=== PATIENT | male | born 1970 | race Caucasian/White ===

== ENCOUNTER 2022-01-22 23:59 | Inpatient (IN) | payer OTHER, BC ==
[2022-01-23] MEDS ORDERED: Fentanyl 100 MCG/2 ML VIAL ONE (00:03)
[2022-01-23] MEDS ORDERED: Boostrix 0.5 ML (Tdap) VIAL ONE (00:07)
[2022-01-23] MEDS ORDERED: ceFAZolin (BATCH) 2 GM/100 ML BAG ONE ×2 (00:07→00:08)
[2022-01-23] MEDS ORDERED: Vecuronium 10 MG VIAL ONE (00:10)
[2022-01-23] MEDS ORDERED: Water For Inject, Bacteriostat 30 ML ONE (00:12)
[2022-01-23 00:24] LABS: #Eosinphils 0.1 thou/uL (0.0-0.7); #Lymphocytes 2.8 thou/uL (1.20-3.40); #Monocytes 1.4 thou/uL (0.11-0.59); #Neutrophils 15.5 thou/uL (1.40-6.50); %Basophils 0.2 % (0.0-1.0); %Eosinophils 0.4 % (0.0-10.0); %Neutrophils 78.3 % (42.0-75.0); Hemoglobin 16.2 g/dL (14.0-18.0); Mean Corpuscular Hemoglobin 30.2 pg (27.0-31.0); Mean Corpuscular Volume 94.4 fL (78.0-98.0); Mean Platelet Volume 7.7 fL (7.4-10.4); Platelet Count 164 thou/uL (130-400); RBC Distribution Width 13.8 % (11.5-14.5); Red Blood Cell (RBC) Count 5.38 mill/uL (4.70-6.10); White Blood Cell (WBC) Count 19.8 thou/uL (4.8-10.8)
[2022-01-23 00:42] LABS: ALT (SGPT) 439 U/L (8-55); AST (SGOT) 488 U/L (5-34); Albumin 3.9 g/dL (3.5-5.0); Alkaline Phosphatase 82 U/L (40-110); Anion Gap 20 mmol/L (10-20); BUN (Urea Nitrogen) 15 mg/dL (8.9-20.6); Bilirubin, Total 1.4 mg/dL (0.2-1.2); Calc. Creatinine Clearance 0 mL/min (70-130); Calcium 8.1 mg/dL (7.8-10.44); Carbon Dioxide 20 mmol/L (22-29); Chloride 105 mmol/L (98-107); Globulin 2.5 g/dL (2.4-3.5); Glucose 105 mg/dL (70-105); Potassium 4.5 mmol/L (3.5-5.1); Protein, Total 6.4 g/dL (6.0-8.3); Sodium 140 mmol/L (136-145)
[2022-01-23 00:50] LABS: Lactic Acid 5.8 mmol/L (0.5-2.2)
[2022-01-23] MEDS ORDERED: Insulin Regular 300 UNITS/3 ML VIAL SC PRN (01:00)
[2022-01-23] MEDS ORDERED: Dextrose 50% Abboject 50 ML SYRINGE SLOW IVP PRN (01:00)
[2022-01-23] MEDS ORDERED: Ondansetron PF 4 MG/2 ML Vial IVP PRN (01:00)
[2022-01-23] MEDS ORDERED: Dextrose 5% in Water 1,000 ML IV PRN (01:00)
[2022-01-23] MEDS ORDERED: Propofol 1,000 MG/100 ML VIAL IV ONE (01:12)
[2022-01-23 01:13] LABS: CKMB 55.1 ng/mL (0-6.6)
[2022-01-23] MEDS ORDERED: Ventilator Sedation Protocol 1 EACH FS SCH (01:15)
[2022-01-23 01:19] LABS: Bacteria/HPF 4+ HPF (None Seen); Bilirubin Negative (Negative); Blood, Urine 3+ (Negative); Clarity Turbid (Clear); Glucose, Urine (Dipstick) 30 mg/dL (Negative); Ketone, Urine Negative (Negative); Leukocyte Negative Leu/uL (Negative); Nitrite Negative (Negative); Protein, Urine (Dipstick) 200 mg/dL (Neg-Trace); Squamous Epithelial 0-3 HPF (0-3); Urobilinogen Normal mg/dL (Less than 2); pH, Urine 6.5 (5.0-9.0)
[2022-01-23 01:27] LABS: Alcohol Less than 10 mg/dL (Less than 10); CK (CPK) 3105 U/L (30-200); Magnesium 2.6 mg/dL (1.6-2.6); Phosphorus 4.9 mg/dL (2.3-4.7)
[2022-01-23 01:36] LABS: Calcium Oxalate Crystals None Seen HPF (None Seen); Specific Gravity, Urine 1.053 (1.002-1.036)
[2022-01-23 01:37] LABS: Sperm/HPF None Seen HPF (None Seen)
[2022-01-23 01:38] LABS: WBC/HPF 0-3 HPF (0-3)
[2022-01-23] MEDS ORDERED: Fentanyl BOLUS 250 ML IVPB PRN (02:15)
[2022-01-23] MEDS ORDERED: DISCONTINUE PREVIOUS NARCOTIC PAIN MEDICATIONS AND BENZODIAZEPINES FS SCH (02:15)
[2022-01-23] MEDS ORDERED: Morphine 4 MG/ML VIAL SLOW IVP PRN (02:15)
[2022-01-23] MEDS ORDERED: Propofol BOLUS 1,000 MG/100 ML VIAL IV PRN (02:15)
[2022-01-23 02:29] LABS: SARS-CoV-2 NAA Rapid Test Not Detected (NotDetected)
[2022-01-23 03:25] LABS: Actual Bicarbonate (HCO3a) 22.1 mEq/L (22-28); Base Excess (BEa) -3.7 mEq/L (-2.0 to +3.0); CO2 Tension 42.5 mmHg (35.0-45.0); Calcium, Ionized (arterial) 1.08 mmol/L (1.12-1.30); Carboxyhemoglobin (COHb) 0.9 gm% (0.0-3.0); Hemoglobin (Hb) 15.5 g/dL (14.0-18.0); O2 Tension (PaO2), arterial 373.8 mmHg (80.0-100.0); Potassium - ABG Lab 3.96 mmol/L (3.70-5.30); pH, Arterial 7.33 (7.35-7.45)
[2022-01-23 03:29] LABS: Puncture Site LRA
[2022-01-23 03:30] LABS: ALV-art Gradient 286.075 mmHg (0-20)
[2022-01-23] MEDS ORDERED: Lidocaine 2% 20 ml MDV SC SCH (03:30)
[2022-01-23 03:42] LABS: Amphetamine Detected (NotDetected); Barbiturates Screen Not Detected (NotDetected); Benzodiazepine Screen Not Detected (NotDetected); Cocaine Metabolite Screen Not Detected (NotDetected); Methadone Not Detected (NotDetected); Methamphetamine Detected (NotDetected); Opiate Screen Not Detected (NotDetected); Oxycodone Screen Not Detected (NotDetected); Phencyclidine (PCP) Not Detected (NotDetected); THC/Cannabinoid Screen Detected (NotDetected); Tricyclic Screen Not Detected (NotDetected)
[2022-01-23] MEDS: Sodium Chloride 0.9% 1,000 ML IV SCH ×4 (03:54→16:45)
[2022-01-23 04:30] LABS: #Basophils 0.1 thou/uL (0.0-0.2); #Lymphocytes 1.7 thou/uL (1.20-3.40); %Basophils 0.7 % (0.0-1.0); %Eosinophils 0.3 % (0.0-10.0); %Lymphocytes 13.1 % (21.0-51.0); %Monocytes 7.5 % (0.0-10.0); %Neutrophils 78.3 % (42.0-75.0); Hemoglobin 15.8 g/dL (14.0-18.0); Mean Corpuscular HGB CONC 32.8 g/dL (32.0-36.0); Mean Corpuscular Hemoglobin 30.3 pg (27.0-31.0); Mean Corpuscular Volume 92.4 fL (78.0-98.0); Mean Platelet Volume 7.6 fL (7.4-10.4); Platelet Count 116 thou/uL (130-400); RBC Distribution Width 13.9 % (11.5-14.5); Red Blood Cell (RBC) Count 5.23 mill/uL (4.70-6.10); White Blood Cell (WBC) Count 12.8 thou/uL (4.8-10.8)
[2022-01-23 04:51] LABS: Lactic Acid 2.8 mmol/L (0.5-2.2)
[2022-01-23 05:08] LABS: Anion Gap 16 mmol/L (10-20); BUN (Urea Nitrogen) 15 mg/dL (8.9-20.6); Calc. Creatinine Clearance 112 mL/min (70-130); Calcium 7.8 mg/dL (7.8-10.44); Carbon Dioxide 18 mmol/L (22-29); Chloride 109 mmol/L (98-107); Glucose 102 mg/dL (70-105); Magnesium 2.3 mg/dL (1.6-2.6); Phosphorus 3.6 mg/dL (2.3-4.7); Potassium 4.2 mmol/L (3.5-5.1); Sodium 139 mmol/L (136-145)
[2022-01-23 05:10] LABS: Troponin I 0.499 ng/mL (< 0.028)
[2022-01-23] MEDS: Propofol 1,000 MG/100 ML VIAL IV PRN ×2 (05:11→15:34)
[2022-01-23 05:15] LABS: Analyzer IN Cardio ER; Base Excess (BEa) -8.2 mEq/L (-2.0 to +3.0); CO2 Tension 51.4 mmHg (35.0-45.0); Calcium, Ionized (arterial) 1.04 mmol/L (1.12-1.30); Hemoglobin (Hb) 16.2 g/dL (14.0-18.0); O2 Tension (PaO2), arterial 384.2 mmHg (80.0-100.0)
[2022-01-23 05:17] LABS: pH, Arterial 7.21 (7.35-7.45)
[2022-01-23 05:18] LABS: Puncture Site RRA
[2022-01-23] MEDS: Acetaminophen 325 MG TAB PO SCH ×3 (05:55→19:29)
[2022-01-23] MEDS ORDERED: ceFAZolin (BATCH) 2 GM in Premix Bag 1 BAG IVPB SCH (08:15)
[2022-01-23] MEDS ORDERED: Bacitracin 1 PK TOP SCH (09:00)
[2022-01-23] MEDS: Senokot S 8.6-50 MG TAB PO SCH ×2 (09:25→21:23)
[2022-01-23] MEDS: Famotidine/PF 20 mg/2ml Vial SLOW IVP SCH ×2 (09:25→21:23)
[2022-01-23] MEDS: Polyethylene Glycol 3350 17 GM Packet PO SCH (09:25)
[2022-01-23] MEDS ORDERED: Calcium Chloride 13.6 MEQ in Sodium Chloride 0.9% 100 ML IVPB SCH (09:45)
[2022-01-23] MEDS: Bacitracin Zinc Ointment 30 gm TUBE TOP SCH ×2 (10:04→21:22)
[2022-01-23] MEDS ORDERED: Lactated Ringer's 1,000 ML IV SCH (11:00)
[2022-01-23 11:42] LABS: #Basophils 0.1 thou/uL (0.0-0.2); #Eosinphils 0.1 thou/uL (0.0-0.7); #Lymphocytes 2.4 thou/uL (1.20-3.40); #Monocytes 0.8 thou/uL (0.11-0.59); #Neutrophils 7.4 thou/uL (1.40-6.50); %Basophils 0.5 % (0.0-1.0); %Eosinophils 0.7 % (0.0-10.0); %Monocytes 7.4 % (0.0-10.0); %Neutrophils 69.4 % (42.0-75.0); Hemoglobin 13.7 g/dL (14.0-18.0); Mean Corpuscular HGB CONC 34.4 g/dL (32.0-36.0); Mean Corpuscular Hemoglobin 31.4 pg (27.0-31.0); Mean Corpuscular Volume 91.3 fL (78.0-98.0); Mean Platelet Volume 8.4 fL (7.4-10.4); Platelet Count 83 thou/uL (130-400); RBC Distribution Width 14.3 % (11.5-14.5); Red Blood Cell (RBC) Count 4.38 mill/uL (4.70-6.10); White Blood Cell (WBC) Count 10.7 thou/uL (4.8-10.8)
[2022-01-23] MEDS ORDERED: Piperacillin/Tazobactam 3.375 GM in Sodium Chloride 0.9% 100 ML IVPB SCH ×5 (12:00→19:45)
[2022-01-23 12:05] LABS: Anion Gap 12 mmol/L (10-20); BUN (Urea Nitrogen) 19 mg/dL (8.9-20.6); Calc. Creatinine Clearance 133 mL/min (70-130); Calcium 8.3 mg/dL (7.8-10.44); Carbon Dioxide 22 mmol/L (22-29); Chloride 110 mmol/L (98-107); Glucose 108 mg/dL (70-105); Magnesium 2.2 mg/dL (1.6-2.6); Phosphorus 3.7 mg/dL (2.3-4.7); Potassium 4.1 mmol/L (3.5-5.1); Sodium 140 mmol/L (136-145)
[2022-01-23] MEDS: fentaNYL Citrate-0.9 % NaCl/PF 100 ML IV SCH ×2 (13:10→19:29)
[2022-01-23] MEDS ORDERED: Midazolam HCl 5 mg/5 ml Vial ONE (16:19)
[2022-01-23] MEDS ORDERED: Rocuronium Bromide 50 MG/5 ML VIAL ONE (16:19)
[2022-01-23] MEDS ORDERED: Rocuronium Bromide 10 MG/ML (10ML VIAL) ONE (16:51)
[2022-01-23] MEDS ORDERED: Albumin 5% 250 ML ONE (17:22)
[2022-01-23] MEDS: ceFAZolin (BATCH) 2 GM in Premix Bag 1 BAG IVPB SCH (21:22)
[2022-01-23] MEDS ORDERED: ceFAZolin 2 GM/Dextrose 50 ML 2 GM in Premix Bag 1 BAG IVPB SCH (22:00)
[2022-01-24] MEDS: Sodium Chloride 0.9% 1,000 ML IV SCH ×5 (00:43→22:34)
[2022-01-24] MEDS: Acetaminophen 325 MG TAB PO SCH ×5 (00:44→23:57)
[2022-01-24] MEDS: Piperacillin/Tazobactam 3.375 GM in Sodium Chloride 0.9% 100 ML IVPB SCH ×3 (01:49→17:19)
[2022-01-24] MEDS: Propofol 1,000 MG/100 ML VIAL IV PRN (03:46)
[2022-01-24 04:10] LABS: #Basophils 0.1 thou/uL (0.0-0.2); #Eosinphils 0.1 thou/uL (0.0-0.7); #Lymphocytes 1.8 thou/uL (1.20-3.40); #Neutrophils 9.3 thou/uL (1.40-6.50); %Basophils 0.5 % (0.0-1.0); %Eosinophils 0.8 % (0.0-10.0); %Lymphocytes 14.9 % (21.0-51.0); %Monocytes 8.4 % (0.0-10.0); %Neutrophils 75.5 % (42.0-75.0); Hemoglobin 12.5 g/dL (14.0-18.0); Mean Corpuscular HGB CONC 33.9 g/dL (32.0-36.0); Mean Corpuscular Volume 91.5 fL (78.0-98.0); Mean Platelet Volume 8.6 fL (7.4-10.4); Platelet Count 92 thou/uL (130-400); RBC Distribution Width 14.4 % (11.5-14.5); Red Blood Cell (RBC) Count 4.03 mill/uL (4.70-6.10); White Blood Cell (WBC) Count 12.4 thou/uL (4.8-10.8)
[2022-01-24 04:13] LABS: Lactic Acid 1.5 mmol/L (0.5-2.2)
[2022-01-24 04:25] LABS: ALT (SGPT) 169 U/L (8-55); AST (SGOT) 151 U/L (5-34); Alkaline Phosphatase 62 U/L (40-110); Anion Gap 11 mmol/L (10-20); BUN (Urea Nitrogen) 18 mg/dL (8.9-20.6); Bilirubin, Total 1.2 mg/dL (0.2-1.2); CK (CPK) 3934 U/L (30-200); Calc. Creatinine Clearance 150 mL/min (70-130); Calcium 7.6 mg/dL (7.8-10.44); Carbon Dioxide 20 mmol/L (22-29); Chloride 113 mmol/L (98-107); Globulin 1.8 g/dL (2.4-3.5); Glucose 147 mg/dL (70-105); Phosphorus 2.9 mg/dL (2.3-4.7); Potassium 4.1 mmol/L (3.5-5.1); Protein, Total 4.8 g/dL (6.0-8.3); Sodium 140 mmol/L (136-145)
[2022-01-24] MEDS ORDERED: Sodium Chloride 0.9% 1,000 ML IV SCH (04:30)
[2022-01-24] MEDS: ceFAZolin (BATCH) 2 GM in Premix Bag 1 BAG IVPB SCH ×2 (05:31→15:25)
[2022-01-24] MEDS: hydrALAZINE 20 MG/ML VIAL SLOW IVP PRN (06:07)
[2022-01-24] MEDS: fentaNYL Citrate-0.9 % NaCl/PF 100 ML IV SCH ×2 (06:11→15:55)
[2022-01-24 07:22] LABS: Actual Bicarbonate (HCO3a) 20.6 mEq/L (22-28); Base Excess (BEa) -4.3 mEq/L (-2.0 to +3.0); CO2 Tension 37.1 mmHg (35.0-45.0); Calcium, Ionized (arterial) 1.07 mmol/L (1.12-1.30); Carboxyhemoglobin (COHb) 0.6 gm% (0.0-3.0); Hemoglobin (Hb) 12.4 g/dL (14.0-18.0); O2 Tension (PaO2), arterial 62.2 mmHg (80.0-100.0); Potassium - ABG Lab 3.98 mmol/L (3.70-5.30); Puncture Site Arterial Line; pH, Arterial 7.36 (7.35-7.45)
[2022-01-24 07:23] LABS: ALV-art Gradient 176.625 mmHg (0-20)
[2022-01-24] MEDS ORDERED: Calcium Chloride 13.6 MEQ in Sodium Chloride 0.9% 100 ML IVPB SCH (08:00)
[2022-01-24] MEDS: Polyethylene Glycol 3350 17 GM Packet PO SCH (09:36)
[2022-01-24] MEDS: Famotidine/PF 20 mg/2ml Vial SLOW IVP SCH ×2 (09:36→20:37)
[2022-01-24] MEDS: Senokot S 8.6-50 MG TAB PO SCH ×2 (09:36→20:37)
[2022-01-24] MEDS: Bacitracin Zinc Ointment 30 gm TUBE TOP SCH ×2 (10:07→20:37)
[2022-01-24] MEDS: Enoxaparin Sodium 30 MG/0.3 ML SYRINGE SC SCH (20:37)
[2022-01-24] MEDS: Ibuprofen 200 MG TAB PO PRN (20:37)
[2022-01-24] MEDS ORDERED: Lactated Ringer's 1,000 ML IV SCH (23:00)
[2022-01-24] MEDS: Vancomycin HCl 1.75 GM in Sodium Chloride 0.9% 500 ML IVPB SCH (23:15)
[2022-01-25] MEDS: Piperacillin/Tazobactam 3.375 GM in Sodium Chloride 0.9% 100 ML IVPB SCH ×3 (01:46→18:11)
[2022-01-25] MEDS: Sodium Chloride 0.9% 1,000 ML IV SCH ×3 (03:46→16:20)
[2022-01-25 03:54] LABS: #Basophils 0.1 thou/uL (0.0-0.2); #Eosinphils 0.1 thou/uL (0.0-0.7); #Lymphocytes 1.6 thou/uL (1.20-3.40); #Monocytes 0.8 thou/uL (0.11-0.59); %Basophils 0.6 % (0.0-1.0); %Eosinophils 1.2 % (0.0-10.0); %Lymphocytes 14.9 % (21.0-51.0); %Monocytes 7.8 % (0.0-10.0); %Neutrophils 75.5 % (42.0-75.0); Hemoglobin 8.9 g/dL (14.0-18.0); Mean Corpuscular HGB CONC 33.8 g/dL (32.0-36.0); Mean Corpuscular Hemoglobin 31.4 pg (27.0-31.0); Mean Corpuscular Volume 92.8 fL (78.0-98.0); Mean Platelet Volume 8.9 fL (7.4-10.4); Platelet Count 86 thou/uL (130-400); RBC Distribution Width 13.6 % (11.5-14.5); Red Blood Cell (RBC) Count 2.85 mill/uL (4.70-6.10); White Blood Cell (WBC) Count 10.6 thou/uL (4.8-10.8)
[2022-01-25] MEDS: fentaNYL Citrate-0.9 % NaCl/PF 100 ML IV SCH ×2 (03:54→14:11)
[2022-01-25 04:16] LABS: Anion Gap 10 mmol/L (10-20); BUN (Urea Nitrogen) 18 mg/dL (8.9-20.6); CK (CPK) 2220 U/L (30-200); Calc. Creatinine Clearance 181 mL/min (70-130); Calcium 7.5 mg/dL (7.8-10.44); Carbon Dioxide 21 mmol/L (22-29); Chloride 114 mmol/L (98-107); Glucose 125 mg/dL (70-105); Phosphorus 2.2 mg/dL (2.3-4.7); Potassium 4.4 mmol/L (3.5-5.1); Sodium 141 mmol/L (136-145)
[2022-01-25] MEDS: Acetaminophen 325 MG TAB PO SCH ×3 (05:42→18:12)
[2022-01-25 06:42] LABS: Actual Bicarbonate (HCO3a) 21.2 mEq/L (22-28); Base Excess (BEa) -3.6 mEq/L (-2.0 to +3.0); Calcium, Ionized (arterial) 1.06 mmol/L (1.12-1.30); Carboxyhemoglobin (COHb) 0.2 gm% (0.0-3.0); Hemoglobin (Hb) 9.4 g/dL (14.0-18.0); O2 Tension (PaO2), arterial 76.5 mmHg (80.0-100.0); Potassium - ABG Lab 4.05 mmol/L (3.70-5.30); pH, Arterial 7.38 (7.35-7.45)
[2022-01-25 06:46] LABS: Puncture Site Arterial Line
[2022-01-25] MEDS: Bacitracin Zinc Ointment 30 gm TUBE TOP SCH ×3 (08:17→21:19)
[2022-01-25] MEDS: Lorazepam 2 MG/ML VIAL SLOW IVP PRN ×3 (08:59→18:11)
[2022-01-25] MEDS: Enoxaparin Sodium 30 MG/0.3 ML SYRINGE SC SCH ×2 (08:59→21:20)
[2022-01-25] MEDS: Senokot S 8.6-50 MG TAB PO SCH ×2 (08:59→21:21)
[2022-01-25] MEDS: Famotidine/PF 20 mg/2ml Vial SLOW IVP SCH ×2 (08:59→21:20)
[2022-01-25] MEDS: Polyethylene Glycol 3350 17 GM Packet PO SCH (08:59)
[2022-01-25] MEDS: Dexmedetomidine 1,000 MCG in Sodium Chloride 0.9% 250 ML 240 ML IVPB SCH ×2 (09:20→16:20)
[2022-01-25] MEDS: Vancomycin HCl 1.75 GM in Sodium Chloride 0.9% 500 ML IVPB SCH (12:32)
[2022-01-25] MEDS ORDERED: Senokot S 8.6-50 MG TAB PO SCH (21:00)
[2022-01-26] MEDS: Acetaminophen 325 MG TAB PO SCH ×5 (00:08→23:55)
[2022-01-26] MEDS: Vancomycin HCl 1.75 GM in Sodium Chloride 0.9% 500 ML IVPB SCH ×2 (00:08→10:30)
[2022-01-26] MEDS: Sodium Chloride 0.9% 1,000 ML IV SCH ×2 (00:53→06:25)
[2022-01-26] MEDS: Dexmedetomidine 1,000 MCG in Sodium Chloride 0.9% 250 ML 240 ML IVPB SCH ×3 (02:18→19:22)
[2022-01-26] MEDS: Piperacillin/Tazobactam 3.375 GM in Sodium Chloride 0.9% 100 ML IVPB SCH ×3 (02:18→17:20)
[2022-01-26] MEDS: fentaNYL Citrate-0.9 % NaCl/PF 100 ML IV SCH ×2 (03:11→15:19)
[2022-01-26 03:53] LABS: #Eosinphils 0.3 thou/uL (0.0-0.7); #Lymphocytes 1.5 thou/uL (1.20-3.40); #Monocytes 0.7 thou/uL (0.11-0.59); #Neutrophils 6.5 thou/uL (1.40-6.50); %Basophils 0.3 % (0.0-1.0); %Lymphocytes 16.6 % (21.0-51.0); %Monocytes 7.3 % (0.0-10.0); %Neutrophils 72.9 % (42.0-75.0); Hemoglobin 8.3 g/dL (14.0-18.0); Mean Corpuscular HGB CONC 33.2 g/dL (32.0-36.0); Mean Corpuscular Hemoglobin 30.8 pg (27.0-31.0); Mean Corpuscular Volume 92.7 fL (78.0-98.0); Mean Platelet Volume 8.7 fL (7.4-10.4); Platelet Count 122 thou/uL (130-400); RBC Distribution Width 13.5 % (11.5-14.5); Red Blood Cell (RBC) Count 2.68 mill/uL (4.70-6.10); White Blood Cell (WBC) Count 8.9 thou/uL (4.8-10.8)
[2022-01-26 04:11] LABS: ALT (SGPT) 52 U/L (8-55); AST (SGOT) 61 U/L (5-34); Albumin 2.6 g/dL (3.5-5.0); Alkaline Phosphatase 56 U/L (40-110); Anion Gap 10 mmol/L (10-20); BUN (Urea Nitrogen) 18 mg/dL (8.9-20.6); Bilirubin, Total 0.8 mg/dL (0.2-1.2); Calc. Creatinine Clearance 208 mL/min (70-130); Calcium 7.6 mg/dL (7.8-10.44); Carbon Dioxide 22 mmol/L (22-29); Chloride 115 mmol/L (98-107); Globulin 2.2 g/dL (2.4-3.5); Glucose 129 mg/dL (70-105); Magnesium 2.1 mg/dL (1.6-2.6); Potassium 3.9 mmol/L (3.5-5.1); Protein, Total 4.8 g/dL (6.0-8.3); Sodium 143 mmol/L (136-145)
[2022-01-26 04:13] LABS: Phosphorus 1.8 mg/dL (2.3-4.7)
[2022-01-26] MEDS ORDERED: Sodium Phosphate 30 MMOL in Sodium Chloride 0.9% 250 ML 250 ML IVPB SCH (06:00)
[2022-01-26 07:03] LABS: Actual Bicarbonate (HCO3a) 21.3 mEq/L (22-28); Base Excess (BEa) -3.1 mEq/L (-2.0 to +3.0); CO2 Tension 35.2 mmHg (35.0-45.0); Calcium, Ionized (arterial) 1.12 mmol/L (1.12-1.30); Carboxyhemoglobin (COHb) 0.2 gm% (0.0-3.0); Hemoglobin (Hb) 8.4 g/dL (14.0-18.0); O2 Tension (PaO2), arterial 100.4 mmHg (80.0-100.0); Potassium - ABG Lab 3.71 mmol/L (3.70-5.30)
[2022-01-26 07:04] LABS: Puncture Site Arterial Line
[2022-01-26] MEDS ORDERED: Polyethylene Glycol 3350 17 GM Packet PO SCH (09:00)
[2022-01-26] MEDS: Lorazepam 2 MG/ML VIAL SLOW IVP PRN ×2 (09:05→13:45)
[2022-01-26] MEDS: Senokot S 8.6-50 MG TAB PO SCH ×2 (09:27→20:23)
[2022-01-26] MEDS: Enoxaparin Sodium 30 MG/0.3 ML SYRINGE SC SCH ×2 (09:27→20:22)
[2022-01-26] MEDS: Polyethylene Glycol 3350 17 GM Packet PO SCH (09:27)
[2022-01-26] MEDS: Famotidine/PF 20 mg/2ml Vial SLOW IVP SCH ×2 (09:27→20:23)
[2022-01-26] MEDS: Saccharomyces boulardii 250 MG CAP PO SCH (09:27)
[2022-01-26] MEDS: Bacitracin Zinc Ointment 30 gm TUBE TOP SCH ×2 (09:29→20:22)
[2022-01-26 10:16] LABS: Vancomycin, Trough 10.2 ug/mL
[2022-01-26] MEDS ORDERED: Furosemide 40 MG/4 ML VIAL SLOW IVP SCH (21:30)
[2022-01-27] MEDS: Piperacillin/Tazobactam 3.375 GM in Sodium Chloride 0.9% 100 ML IVPB SCH (01:05)
[2022-01-27] MEDS: Ibuprofen 200 MG TAB PO PRN (01:13)
[2022-01-27] MEDS: Dexmedetomidine 1,000 MCG in Sodium Chloride 0.9% 250 ML 240 ML IVPB SCH ×3 (01:29→20:57)
[2022-01-27] MEDS: fentaNYL Citrate-0.9 % NaCl/PF 100 ML IV SCH ×2 (04:19→15:49)
[2022-01-27] MEDS ORDERED: Ibuprofen 200 MG TAB PO SCH (05:00)
[2022-01-27] MEDS: Acetaminophen 325 MG TAB PO SCH ×4 (06:13→23:04)
[2022-01-27 07:17] LABS: Actual Bicarbonate (HCO3a) 23.8 mEq/L (22-28); Base Excess (BEa) -0.5 mEq/L (-2.0 to +3.0); CO2 Tension 37.7 mmHg (35.0-45.0); Carboxyhemoglobin (COHb) 0.3 gm% (0.0-3.0); Hemoglobin (Hb) 10.2 g/dL (14.0-18.0); O2 Tension (PaO2), arterial 71.8 mmHg (80.0-100.0); Potassium - ABG Lab 3.64 mmol/L (3.70-5.30); pH, Arterial 7.42 (7.35-7.45)
[2022-01-27 07:34] LABS: #Eosinphils 0.2 thou/uL (0.0-0.7); #Lymphocytes 1.4 thou/uL (1.20-3.40); #Monocytes 0.9 thou/uL (0.11-0.59); #Neutrophils 6.4 thou/uL (1.40-6.50); %Basophils 0.5 % (0.0-1.0); %Eosinophils 2.3 % (0.0-10.0); %Lymphocytes 15.1 % (21.0-51.0); %Monocytes 10.4 % (0.0-10.0); %Neutrophils 71.7 % (42.0-75.0); Hemoglobin 8.2 g/dL (14.0-18.0); Mean Corpuscular HGB CONC 33.2 g/dL (32.0-36.0); Mean Corpuscular Hemoglobin 31.2 pg (27.0-31.0); Mean Corpuscular Volume 94.1 fL (78.0-98.0); Mean Platelet Volume 8.4 fL (7.4-10.4); Platelet Count 192 thou/uL (130-400); RBC Distribution Width 13.5 % (11.5-14.5); Red Blood Cell (RBC) Count 2.63 mill/uL (4.70-6.10); White Blood Cell (WBC) Count 8.9 thou/uL (4.8-10.8)
[2022-01-27 07:36] LABS: Puncture Site LRA
[2022-01-27 07:37] LABS: ALV-art Gradient 166.275 mmHg (0-20)
[2022-01-27 07:55] LABS: Anion Gap 11 mmol/L (10-20); BUN (Urea Nitrogen) 23 mg/dL (8.9-20.6); Calc. Creatinine Clearance 185 mL/min (70-130); Calcium 7.8 mg/dL (7.8-10.44); Carbon Dioxide 26 mmol/L (22-29); Chloride 111 mmol/L (98-107); Glucose 132 mg/dL (70-105); Phosphorus 3.3 mg/dL (2.3-4.7); Potassium 3.7 mmol/L (3.5-5.1); Sodium 144 mmol/L (136-145)
[2022-01-27] MEDS ORDERED: Meropenem 1 GM in Sodium Chloride 0.9% 100 ML IVPB SCH ×3 (08:30→17:00)
[2022-01-27] MEDS: Bacitracin Zinc Ointment 30 gm TUBE TOP SCH ×2 (09:15→21:01)
[2022-01-27] MEDS ORDERED: Iopamidol-370 76% 500 ML 1 ML ONE (09:25)
[2022-01-27] MEDS: Enoxaparin Sodium 30 MG/0.3 ML SYRINGE SC SCH ×2 (09:32→21:23)
[2022-01-27] MEDS: Senokot S 8.6-50 MG TAB PO SCH ×2 (09:32→20:56)
[2022-01-27] MEDS: Saccharomyces boulardii 250 MG CAP PO SCH (09:32)
[2022-01-27] MEDS: Polyethylene Glycol 3350 17 GM Packet PO SCH (09:33)
[2022-01-27] MEDS: Famotidine/PF 20 mg/2ml Vial SLOW IVP SCH ×2 (09:34→20:56)
[2022-01-27 12:03] VITALS: BMI 40.1
[2022-01-27] MEDS ORDERED: Meropenem 2 GM in Admixture Fee 1 EACH IVPB SCH (14:00)
[2022-01-27] MEDS: Meropenem 1 GM in Sodium Chloride 0.9% 100 ML IVPB SCH ×2 (14:09→22:23)
[2022-01-27] MEDS: Metoclopramide HCl 10 MG/2 ML VIAL IVP SCH ×2 (14:09→22:23)
[2022-01-27] MEDS: hydrALAZINE 20 MG/ML VIAL SLOW IVP PRN (15:17)
[2022-01-27] MEDS: Lorazepam 2 MG/ML VIAL SLOW IVP PRN ×2 (15:34→20:42)
[2022-01-27] MEDS ORDERED: Potassium Phosphate 30 MMOL in Sodium Chloride 0.9% 250 ML 250 ML IVPB SCH (16:30)
[2022-01-27] MEDS ORDERED: Furosemide 40 MG/4 ML VIAL SLOW IVP SCH (16:30)
[2022-01-27] MEDS ORDERED: Labetalol HCl 100 MG/20 ML VIAL SLOW IVP PRN (19:49)
[2022-01-28] MEDS: Lorazepam 2 MG/ML VIAL SLOW IVP PRN (03:06)
[2022-01-28] MEDS: Dexmedetomidine 1,000 MCG in Sodium Chloride 0.9% 250 ML 240 ML IVPB SCH ×3 (03:54→20:05)
[2022-01-28 04:12] LABS: #Eosinphils 0.2 thou/uL (0.0-0.7); #Lymphocytes 1.5 thou/uL (1.20-3.40); #Monocytes 1.2 thou/uL (0.11-0.59); #Neutrophils 8.7 thou/uL (1.40-6.50); %Basophils 0.4 % (0.0-1.0); %Eosinophils 1.6 % (0.0-10.0); %Lymphocytes 13.1 % (21.0-51.0); %Monocytes 10.3 % (0.0-10.0); %Neutrophils 74.6 % (42.0-75.0); Hemoglobin 9.3 g/dL (14.0-18.0); Mean Corpuscular Hemoglobin 30.7 pg (27.0-31.0); Mean Corpuscular Volume 93.1 fL (78.0-98.0); Mean Platelet Volume 7.9 fL (7.4-10.4); Platelet Count 286 thou/uL (130-400); RBC Distribution Width 13.2 % (11.5-14.5); Red Blood Cell (RBC) Count 3.02 mill/uL (4.70-6.10); White Blood Cell (WBC) Count 11.7 thou/uL (4.8-10.8)
[2022-01-28 04:39] LABS: Anion Gap 13 mmol/L (10-20); BUN (Urea Nitrogen) 19 mg/dL (8.9-20.6); Calc. Creatinine Clearance 194 mL/min (70-130); Calcium 8.4 mg/dL (7.8-10.44); Carbon Dioxide 28 mmol/L (22-29); Chloride 109 mmol/L (98-107); Glucose 135 mg/dL (70-105); Potassium 3.8 mmol/L (3.5-5.1); Sodium 146 mmol/L (136-145)
[2022-01-28] MEDS: Metoclopramide HCl 10 MG/2 ML VIAL IVP SCH ×3 (05:51→22:18)
[2022-01-28] MEDS: Acetaminophen 325 MG TAB PO SCH ×3 (05:51→20:07)
[2022-01-28] MEDS: Meropenem 1 GM in Sodium Chloride 0.9% 100 ML IVPB SCH ×3 (05:52→22:17)
[2022-01-28 07:34] LABS: Actual Bicarbonate (HCO3a) 29.1 mEq/L (22-28); Base Excess (BEa) 5.3 mEq/L (-2.0 to +3.0); CO2 Tension 39.2 mmHg (35.0-45.0); Calcium, Ionized (arterial) 1.14 mmol/L (1.12-1.30); Carboxyhemoglobin (COHb) 0.5 gm% (0.0-3.0); Hemoglobin (Hb) 10.3 g/dL (14.0-18.0); O2 Tension (PaO2), arterial 68.7 mmHg (80.0-100.0); Potassium - ABG Lab 3.84 mmol/L (3.70-5.30); pH, Arterial 7.49 (7.35-7.45)
[2022-01-28 07:35] LABS: Puncture Site LRA
[2022-01-28] MEDS: fentaNYL Citrate-0.9 % NaCl/PF 100 ML IV SCH ×2 (08:01→18:58)
[2022-01-28] MEDS: Saccharomyces boulardii 250 MG CAP PO SCH ×2 (08:03→15:19)
[2022-01-28] MEDS: Senokot S 8.6-50 MG TAB PO SCH ×3 (08:03→20:06)
[2022-01-28] MEDS: Polyethylene Glycol 3350 17 GM Packet PO SCH ×2 (08:03→15:19)
[2022-01-28] MEDS: Enoxaparin Sodium 30 MG/0.3 ML SYRINGE SC SCH ×2 (08:03→20:06)
[2022-01-28] MEDS: Famotidine/PF 20 mg/2ml Vial SLOW IVP SCH ×2 (08:03→20:07)
[2022-01-28] MEDS: Bacitracin Zinc Ointment 30 gm TUBE TOP SCH ×2 (08:04→20:07)
[2022-01-28] MEDS: Metoprolol Tartrate 25 MG TAB PER TUBE SCH ×2 (11:22→20:06)
[2022-01-28 13:42] LABS: Actual Bicarbonate (HCO3a) 20.3 mEq/L (22-28); Analyzer IN Cardio OR; Base Excess (BEa) -5.3 mEq/L (-2.0 to +3.0); CO2 Tension 39.6 mmHg (35.0-45.0); Calcium, Ionized (arterial) 1.09 mmol/L (1.12-1.30); Carboxyhemoglobin (COHb) 1.5 gm% (0.0-3.0); Hemoglobin (Hb) 13.3 g/dL (14.0-18.0); O2 Tension (PaO2), arterial 80.3 mmHg (80.0-100.0); Potassium - ABG Lab 3.87 mmol/L (3.70-5.30); Puncture Site Arterial Line; pH, Arterial 7.33 (7.35-7.45)
[2022-01-28] MEDS ORDERED: Bupivacaine PF 0.5% 30 ML VIAL ONE (15:27)
[2022-01-28] MEDS ORDERED: Lidocaine 1% w/Epinephrine 1:100K 20 ML VIAL ONE (15:27)
[2022-01-28] MEDS ORDERED: Midazolam HCl 5 mg/5 ml Vial ONE (15:39)
[2022-01-28] MEDS ORDERED: Dexmedetomidine 200 MCG/2 ML VIAL ONE (15:39)
[2022-01-28] MEDS ORDERED: Fentanyl 250 MCG/5 ML VIAL ONE (15:39)
[2022-01-28] MEDS ORDERED: Rocuronium Bromide 10 MG/ML (10ML VIAL) ONE (16:09)
[2022-01-29] MEDS: Lorazepam 2 MG/ML VIAL SLOW IVP PRN ×2 (01:38→10:17)
[2022-01-29] MEDS: Acetaminophen 325 MG TAB PO SCH ×4 (01:40→17:52)
[2022-01-29] MEDS: Dexmedetomidine 1,000 MCG in Sodium Chloride 0.9% 250 ML 240 ML IVPB SCH ×4 (02:33→21:38)
[2022-01-29 04:04] LABS: Hemoglobin 8.7 g/dL (14.0-18.0); Mean Corpuscular HGB CONC 31.9 g/dL (32.0-36.0); Mean Corpuscular Hemoglobin 30.1 pg (27.0-31.0); Mean Corpuscular Volume 94.3 fL (78.0-98.0); Mean Platelet Volume 7.8 fL (7.4-10.4); Platelet Count 362 thou/uL (130-400); RBC Distribution Width 13.2 % (11.5-14.5)
[2022-01-29 04:18] LABS: Anion Gap 12 mmol/L (10-20); BUN (Urea Nitrogen) 25 mg/dL (8.9-20.6); Calc. Creatinine Clearance 175 mL/min (70-130); Calcium 8.4 mg/dL (7.8-10.44); Carbon Dioxide 29 mmol/L (22-29); Chloride 111 mmol/L (98-107); Glucose 129 mg/dL (70-105); Magnesium 2.4 mg/dL (1.6-2.6); Phosphorus 3.2 mg/dL (2.3-4.7); Potassium 4.1 mmol/L (3.5-5.1); Sodium 148 mmol/L (136-145)
[2022-01-29 04:53] LABS: Band 13 % (5-11); Lymphocytes 14 % (21-51); MDiff Complete? YES; Monocytes 4 % (0-10); Myelocyte 1 % (0-0); Neutrophil 68 % (42-75); Nucleated RBC 1 % (0)
[2022-01-29] MEDS: fentaNYL Citrate-0.9 % NaCl/PF 100 ML IV SCH (04:55)
[2022-01-29] MEDS: Metoclopramide HCl 10 MG/2 ML VIAL IVP SCH ×3 (05:49→21:44)
[2022-01-29] MEDS: Meropenem 1 GM in Sodium Chloride 0.9% 100 ML IVPB SCH ×3 (05:49→21:44)
[2022-01-29 06:42] LABS: Actual Bicarbonate (HCO3a) 29.7 mEq/L (22-28); Base Excess (BEa) 5.1 mEq/L (-2.0 to +3.0); CO2 Tension 44.3 mmHg (35.0-45.0); Calcium, Ionized (arterial) 1.07 mmol/L (1.12-1.30); Carboxyhemoglobin (COHb) 0.8 gm% (0.0-3.0); Hemoglobin (Hb) 9.4 g/dL (14.0-18.0); O2 Tension (PaO2), arterial 80.3 mmHg (80.0-100.0); Potassium - ABG Lab 4.03 mmol/L (3.70-5.30); pH, Arterial 7.44 (7.35-7.45)
[2022-01-29 06:44] LABS: Puncture Site RRA
[2022-01-29 06:45] LABS: ALV-art Gradient 149.525 mmHg (0-20)
[2022-01-29] MEDS: Enoxaparin Sodium 30 MG/0.3 ML SYRINGE SC SCH (09:15)
[2022-01-29] MEDS: Metoprolol Tartrate 25 MG TAB PER TUBE SCH ×2 (09:16→21:44)
[2022-01-29] MEDS: Polyethylene Glycol 3350 17 GM Packet PO SCH (09:16)
[2022-01-29] MEDS: Saccharomyces boulardii 250 MG CAP PO SCH (09:17)
[2022-01-29] MEDS: Senokot S 8.6-50 MG TAB PO SCH ×2 (09:17→21:44)
[2022-01-29] MEDS: Famotidine 20 MG TAB PER TUBE SCH ×2 (09:17→21:45)
[2022-01-29] MEDS ORDERED: Calcium Chloride 13.6 MEQ in Sodium Chloride 0.9% 100 ML IVPB SCH (09:45)
[2022-01-29] MEDS ORDERED: Bisacodyl 10 MG SUPP PR SCH (09:45)
[2022-01-29] MEDS: Bacitracin Zinc Ointment 30 gm TUBE TOP SCH ×2 (09:59→21:46)
[2022-01-29] MEDS: Morphine 2 MG/ML VIAL SLOW IVP PRN ×2 (15:45→19:54)
[2022-01-29] MEDS: Ibuprofen 200 MG TAB PO PRN (19:55)
[2022-01-29] MEDS ORDERED: Enoxaparin Sodium 120 MG/0.8 ML SYRINGE SC SCH (21:00)
[2022-01-29 22:04] LABS: SARS-CoV-2 PCR by NAA Not Detected (NotDetected)
[2022-01-30] MEDS: Acetaminophen 325 MG TAB PO SCH ×2 (00:38→05:19)
[2022-01-30] MEDS: Dexmedetomidine 1,000 MCG in Sodium Chloride 0.9% 250 ML 240 ML IVPB SCH (03:08)
[2022-01-30] MEDS: Morphine 2 MG/ML VIAL SLOW IVP PRN (03:08)
[2022-01-30 04:33] LABS: Anion Gap 13 mmol/L (10-20); BUN (Urea Nitrogen) 24 mg/dL (8.9-20.6); Calc. Creatinine Clearance 207 mL/min (70-130); Calcium 8.3 mg/dL (7.8-10.44); Carbon Dioxide 29 mmol/L (22-29); Chloride 113 mmol/L (98-107); Glucose 137 mg/dL (70-105); Potassium 3.6 mmol/L (3.5-5.1); Sodium 151 mmol/L (136-145)
[2022-01-30] MEDS: Meropenem 1 GM in Sodium Chloride 0.9% 100 ML IVPB SCH (05:19)
[2022-01-30] MEDS: Metoclopramide HCl 10 MG/2 ML VIAL IVP SCH (05:20)
[2022-01-30 07:03] VITALS: BP 145/101
[2022-01-30 07:25] VITALS: TEMP 99.9
[2022-01-30] MEDS ORDERED: Dextrose 5% in Water 1,000 ML IV SCH (08:30)
[2022-01-30] MEDS ORDERED: Apixaban 5 MG TAB PER TUBE SCH (09:00)
[2022-01-30] MEDS: Senokot S 8.6-50 MG TAB PO SCH (09:55)
[2022-01-30] MEDS: Polyethylene Glycol 3350 17 GM Packet PO SCH (09:55)
[2022-01-30] MEDS: Famotidine 20 MG TAB PER TUBE SCH (09:55)
[2022-01-30] MEDS: Metoprolol Tartrate 25 MG TAB PER TUBE SCH (09:56)
[2022-01-30] MEDS: Saccharomyces boulardii 250 MG CAP PO SCH (09:56)
[2022-01-30] MEDS: Bacitracin Zinc Ointment 30 gm TUBE TOP SCH (09:56)
== END 2022-01-30 12:02 | DRG 3 ==
LOC: ERS 23:59 → CCU 01-23 00:05
PROVIDERS: ADMIT Specialist; ATTEND Specialist
PROC: 0QS806Z Reposition Right Femoral Shaft with Intramedullary Internal Fixation Device, Open Approach (ICD-10-PCS; principal; 2022-01-23)
PROC: 5A1955Z Respiratory Ventilation, Greater than 96 Consecutive Hours (ICD-10-PCS; 2022-01-23)
PROC: 0WPBX0Z Removal of Drainage Device from Left Pleural Cavity, External Approach (ICD-10-PCS; 2022-01-23)
PROC: 0W9B30Z Drainage of Left Pleural Cavity with Drainage Device, Percutaneous Approach (ICD-10-PCS; 2022-01-23)
PROC: 0B110F4 Bypass Trachea to Cutaneous with Tracheostomy Device, Open Approach (ICD-10-PCS; 2022-01-28)
PROC: 0DH63UZ Insertion of Feeding Device into Stomach, Percutaneous Approach (ICD-10-PCS; 2022-01-28)
PROC: 3E0G76Z Introduction of Nutritional Substance into Upper GI, Via Natural or Artificial Opening (ICD-10-PCS; 2022-01-28)
DX: S72.301A Unspecified fracture of shaft of right femur, initial encounter for closed fracture (principal); S22.5XXA Flail chest, initial encounter for closed fracture; I77.77 Dissection of artery of lower extremity; J96.00 Acute respiratory failure, unspecified whether with hypoxia or hypercapnia; J69.0 Pneumonitis due to inhalation of food and vomit; T79.4XXA Traumatic shock, initial encounter; S52.511A Displaced fracture of right radial styloid process, initial encounter for closed fracture; S02.31XA Fracture of orbital floor, right side, initial encounter for closed fracture; S02.40DA Maxillary fracture, left side, initial encounter for closed fracture; S02.40EA Zygomatic fracture, right side, initial encounter for closed fracture; S27.0XXA Traumatic pneumothorax, initial encounter; N17.9 Acute kidney failure, unspecified; J98.11 Atelectasis; E87.0 Hyperosmolality and hypernatremia; E87.1 Hypo-osmolality and hyponatremia; E87.2 Acidosis; I82.451 Acute embolism and thrombosis of right peroneal vein; I82.412 Acute embolism and thrombosis of left femoral vein; I82.432 Acute embolism and thrombosis of left popliteal vein; I82.443 Acute embolism and thrombosis of tibial vein, bilateral; S06.0X0A Concussion without loss of consciousness, initial encounter; Z20.822 Contact with and (suspected) exposure to COVID-19; R13.12 Dysphagia, oropharyngeal phase; S30.1XXA Contusion of abdominal wall, initial encounter; T79.6XXA Traumatic ischemia of muscle, initial encounter; S62.602A Fracture of unspecified phalanx of right middle finger, initial encounter for closed fracture; F19.10 Other psychoactive substance abuse, uncomplicated; R40.2432 Glasgow coma scale score 3-8, at arrival to emergency department; S01.01XA Laceration without foreign body of scalp, initial encounter; E66.9 Obesity, unspecified; S40.022A Contusion of left upper arm, initial encounter; S40.021A Contusion of right upper arm, initial encounter; S70.12XA Contusion of left thigh, initial encounter; S70.11XA Contusion of right thigh, initial encounter; S61.411A Laceration without foreign body of right hand, initial encounter; S61.412A Laceration without foreign body of left hand, initial encounter; I10 Essential (primary) hypertension; V23.4XXA Motorcycle driver injured in collision with car, pick-up truck or van in traffic accident, initial encounter; Z78.1 Physical restraint status; Z68.39 Body mass index [BMI] 39.0-39.9, adult
CPT/HCPCS: 32551; 36415; 36416; 36430; 36600; 70486; 70498; 71045; 71275; 72190; 74018; 76000; 80048; 80053; 80202; 80306; 80307; 81003; 81015; 82140; 82550; 82553; 82805; 83605; 83735; 84100; 84484; 85025; 86850; 86900; 86901; 87040; 87070; 87086; 87205; 90471; 90715; 93005; 93010; 93306; 93970; 94002; 94003; 94640; 94760; 96374; 96375; C1713; G0390; J0360; J0690; J1650; J1940; J2060; J2185; J2250; J2270; J2543; J2704; J2765; J3010; J3370; J3490; J7030; J7050; J7070; J7120; J7620; P9045; Q9967; S0020; S0028; U0002; U0003; U0005